=== PATIENT | female | born 1950 | race Caucasian/White ===

== ENCOUNTER 2020-12-06 09:43 | Inpatient (IN) ==
[2020-12-06] MEDS ORDERED: 0.9 % SODIUM CHLORIDE 1,000 ML IV ONE (10:20)
[2020-12-06] MEDS ORDERED: 0.9 % SODIUM CHLORIDE 500 ML IV ONE (10:30)
--- NOTE | 2020-12-06 10:32 | Emergency Department Note ---
Fever HPI General Chief Complaint: Weakness Stated Complaint: positive blood cultures Time Seen by Provider: 12/06/20 10:29 Source: patient, family, RN notes reviewed, old records reviewed and other (Positive blood culture gram-negative bacilli 1 out of 2 sets) Mode of arrival: ambulatory Limitations: no limitations History of Present Illness HPI Narrative: Narrative: A 70-year-old female called back for positive blood cultures. Patient was seen on 7 2 for pneumonia. Had received a dose of Rocephin IV and is on azithromycin p.o. Patient states that she is not improving. She is complaining of fevers and chills and right. She is complaining of shortness of breath. She is complaining of feeling weak and tired and fatigued. She denies any focal weakness. She denies any sore throat she denies any chest pain she denies any abdominal pain she has had nausea but no vomiting. She has had no bright red bl ood per rectum black tarry stools or diarrhea. 1 out of 2 positive blood cultures for gram-negative bacilli. She was hypoxic upon arrival with pulse ox 87% on room air. MD complaint: fever, malaise and weakness Onset (ago): day(s) (5) Context: recent antibiotic use Associated symptoms: Reports chills, rigors, cough, shortness of breath, nausea and confusion; Denies myalgias, headache, rhinorrhea, nasal congestion, sore throat, stiff neck, chest pain, abdominal pain, vomiting, diarrhea, dysuria, rash, night sweats and weight loss Improves with: nothing Worsens with: at night Treatments prior to arrival fever: none Related Data Home Medications Medication Instructions Recorded Confirmed L.acidophilus-Bif. animalis 1 cap PO DAILY 11/26/14 12/06/20 green tea leaf extract 400 mg PO DAILY 11/26/14 12/06/20 lutein 25 mg PO DAILY 11/26/14 12/06/20 omega-3 fatty acids-fish oil 1,000 mg PO DAILY 11/26/14 12/06/20 latanoprost 1 gtt OU HS 06/30/15 12/06/20 omeprazole 20 mg capsule,delayed 20 mg PO QDAY cap 02/22/16 12/06/20 release magnesium 250 tab PO DAILY 06/06/16 12/06/20 cholecalciferol (vitamin D3) 25 1,000 unit PO QDAY 02/27/18 12/06/20 mcg (1,000 unit) capsule B complex-vitamin C-folic acid 400 mcg PO DAILY 01/02/19 12/06/20 coenzyme Q10 100 mg PO DAILY 01/02/19 12/06/20 multivitamin 1 each PO DAILY 01/02/19 12/06/20 melatonin 5 mg capsule 5 mg PO QDAY 10/25/20 12/06/20 zinc acetate 25 mg (zinc) capsule 25 mg PO QDAY 10/25/20 12/06/20 Previous Rx's Medication Instructions Recorded atorvastatin 10 mg tablet 10 mg PO QHS 90 Days #90 tab 11/02/20 albuterol sulfate 2 puff INHALATION Q6H PRN #6.7 g 12/03/20 Allergies Allergy/AdvReac Type Severity Reaction Status Date / Time codeine AdvReac Unknown Itching Verified 12/06/20 09:45 phenobarbital AdvReac Unknown Unknown Verified 12/06/20 09:45 Review of Systems ROS ROS Narrative: Narrative: All systems ED: reviewed and negative except as stated. PFSH Narrative Patient History Narrative: Narrative: Medical/Surgical/Family History All Active Problems (Updated 12/06/20 @ 12:39 by Claus Medina MD) COVID-19 (Acute) Nausea & vomiting (Acute) Pneumonia (Acute) Acute hypokalemia (Acute) Blood bacterial culture positive (Acute) Shoulder pain (Acute) Medicare annual wellness visit, initial (Acute) Multinodular thyroid (Chronic) Puncture wound of left great toe w/o foreign body w/o damage to nail (Acute) Osteopenia (Chronic) History of hysterectomy (Chronic) History of esophagogastroduodenoscopy (EGD) (Chronic) Hyperlipidemia (Chronic) S/P myomectomy (Chronic) History of dental surgery (Chronic) H/O colonoscopy (Chronic) S/P colon resection (Chronic) H/O carpal tunnel repair (Chronic) Hypertension, essential (Chronic) Glaucoma (Chronic) Genital herpes (Chronic) Esophageal reflux (Chronic) Colon polyp (Chronic) Cataracts, bilateral (Chronic) Medical History (Updated 12/06/20 @ 12:39 by Claus Medina MD) Cataracts, bilateral 2014 Colon polyp tubular adenoma, March 2015 Esophageal reflux Genital herpes 1976 Glaucoma 2014 Hyperlipidemia Hypertension, essential Multinodular thyroid Osteopenia Surgical History H/O carpal tunnel repair 1992 H/O colonoscopy [id number], 03/2015 History of dental surgery 2004 Dental implant History of esophagogastroduodenoscopy (EGD) 06/2015 History of hysterectomy History of left salpingo-oophorectomy (08/03/15) right salpingectomy History of vaginal hysterectomy (08/03/15) S/P colon resection 2006 laproscopic S/P myomectomy 1991 Benign fibroid cyst Family History Mother Rheumatoid arthritis Sister Rheumatoid arthritis Grandmother Diabetes mellitus Tuberculosis Father Malignant neoplasm of lung Malignant Neoplasm of Skin Myocardial Infarction Malignant neoplasm of prostate Aunt Myocardial Infarction Brother Myocardial Infarction Social History Smoking Status: Never smoker Alcohol Intake Frequency: holiday/special occasion only Substance Use: does not use Exam Narrative Narrative: Narrative: General Limitations: no limitations General appearance: Present alert and in distress Head Head: Present atraumatic, normocephalic and normal inspection Eye Eye: Present normal appearance, PERRL and EOMI; Absent scleral icterus and conjunctival injection ENT ENT: Present normal oropharynx and mucous membranes dry Neck Neck: Present normal inspection, full ROM and trachea midline; Absent tenderness, lymphadenopathy and thyromegaly Chest Chest: Present normal inspection and symmetric chest wall rise; Absent tenderness Respiratory Respiratory: Present wheezes and decreased breath sounds; Absent respiratory distress, stridor, accessory muscle use and prolonged expiratory phase Cardiovascular Cardiovascular: Present regular rate and normal rhythm; Absent systolic murmur and diastolic murmur Adbominal Abdominal: Present soft; Absent distention, tenderness, guarding, rebound, rigidity, organomegaly and mass Extremities Extremities: Present normal inspection, full ROM and tenderness; Absent normal capillary refill, pedal edema, pretibial edema and calf tenderness Back Back: Present normal inspection and full ROM; Absent tenderness, CVA tenderness (R), CVA tenderness (L) and spinous process tenderness Neurological Neurological: Present alert and oriented X3 Psychiatric Psychiatric: Present normal affect and normal mood Skin Skin: Present warm (WNL) and dry Course Vital Signs Vital signs: Vital Signs Temperature 98.0 F 12/06/20 09:43 Pulse Rate 100 H 12/06/20 09:43 Respiratory Rate 16 12/06/20 09:43 Blood Pressure 122/73 12/06/20 09:43 Pulse Oximetry (%) 90 12/06/20 09:43 Temperature 99.8 F H 12/06/20 10:57 Pulse Rate 96 H 12/06/20 12:30 Respiratory Rate 22 12/06/20 12:30 Blood Pressure 96/83 12/06/20 12:30 Pulse Oximetry (%) 94 12/06/20 12:30 [facility] MDM Narrative Medical decision making narrative: Narrative: Patient with multilobar pneumonia and high cocci treated with p.o. antibiotics and feeling. Positive blood culture showing gram-negative bacillus on 1 out of 2 cultures patient sodium is low at 132 and received IV normal saline patient patient's potassium was low at 2.8 and received IV and p.o. potassium after repeat blood cultures were drawn patient received IV Rocephin and vancomycin, SARS is negative. Discussed patient with Dr. Reno hospitalist service who graciously agreed to admission Differential Diagnosis Differential Diagnosis: Sepsis, Bacteremia, Pneumonia, Medical Records Medical records reviewed: Yes I reviewed the patient's medical records. Lab Data Lab results reviewed: Yes I reviewed the patient's lab results. Result diagrams: 12/06/20 10:15 12/06/20 10:15 Labs: Lab Results 12/06/20 12/06/20 12/06/20 Range/Units 10:15 10:15 10:15 WBC 6.5 (4.5-11.0) K/mcL RBC 4.47 (4.00-5.20) M/mcL Hgb 12.5 (12.0-15.0) g/dL Hct 35.9 L (36.0-48.0) % MCV 80.3 (80.0-100.0) fL MCH 28.0 (26.0-34.0) pg MCHC 34.8 (31.0-36.0) g/dL RDW 13.1 (11.5-14.5) % Plt Count 235 (140-440) K/mcL MPV 9.5 (7.4-10.4) fL Seg Neutrophils % 76 (38-78) % Band Neutrophils % 8 (0-10) % Lymphocytes % 9 L (15-49) % Monocytes % (Manual) 5 (1-12) % Reactive Lymphocytes 2 (0-2) % Platelet Estimate Normal (Normal) RBC Morphology Normal (Normal) VBG Lactic Acid 1.3 (0.5-2.0) mmol/L Sodium 132 L (133-145) mmol/L Potassium 2.8 L* (3.3-5.1) mmol/L Chloride 94 L (96-108) mmol/L Carbon Dioxide 25 (22-30) mmol/L Anion Gap 13.0 (8.0-16.0) BUN 9 (8-23) mg/dL Creatinine 0.4 L (0.6-1.1) mg/dL GFR Calculation 105 Glucose 85 (70-105) mg/dL Calcium 8.3 L (8.6-10.4) mg/dL Total Bilirubin 0.6 (0.1-1.0) mg/dL AST 54 H (<32) U/L ALT 42 H (<40) U/L Alkaline Phosphatase 67 (39-117) U/L Total Protein 6.3 (5.9-8.4) gm/dL Albumin 3.1 L (3.2-5.2) gm/dL Globulin 3.2 (2.2-3.7) gm/dL Albumin/Globulin Ratio 1.0 (1.0-2.3) ED POC Tests ED POC Tests: KIANA - SARS Antigen Negative Radiology Data Radiology results reviewed: Yes I reviewed the patient's radiology results. Radiology results narrative: Bilateral multilobar pneumonia EKG Data EKG #1: EKG attestation: Yes I reviewed and interpreted this EKG. EKG shows normal: sinus rhythm Rate: normal (93) Rhythm: NSR Mclean/QRS: normal Heart block present: None ST segment elevation in: None ST segment depression in: None Q waves: None T wave inversions noted in: None Hyperacute T waves: None QTc: normal QRS morphology: Present normal Interpretation: normal EKG Pulse Oximetry Data Pulse Ox %: 86 Interpretation: 86 is hypoxic on room air. Discharge Plan Patient/Caregiver Discharge Instructions Pt seen by STRIKE OPERATIONS OFFICER/PA only: No Clinical Impression: Pneumonia, Acute hypokalemia, Blood bacterial culture positive Patient Disposition: Xfer As Inpt ([facility]) Follow up with: Carrillo Cameron PA-C [Primary Care Provider] - Prescriptions: No Action atorvastatin 10 mg tablet 10 mg tablet 10 mg PO QHS 90 Days Qty: 90 RF: 1 Fish Oil 1,000 mg PO DAILY RF: 0 Green Tea 400 mg PO DAILY RF: 0 Probiotic 1 cap PO DAILY RF: 0 lutein 25 mg PO DAILY RF: 0 omeprazole 20 mg capsule,delayed release(DR/EC) 20 mg PO QDAY RF: 0 magnesium tablet 250 tab PO DAILY RF: 0 cholecalciferol (vitamin D3) 1,000 unit capsule 1,000 unit PO QDAY RF: 0 Galzin 25 mg (zinc) capsule 25 mg PO QDAY RF: 0 melatonin 5 mg capsule 5 mg PO QDAY RF: 0 latanoprost 1 GTT bottle 1 gtt OU HS RF: 0 multivitamin 1 EACH tablet 1 each PO DAILY RF: 0 coenzyme Q10 100 MG capsule 100 mg PO DAILY RF: 0 B complex-vitamin C-folic acid 400 MCG tablet 400 mcg PO DAILY RF: 0 albuterol sulfate 90 mcg/actuation HFA aerosol inhaler 2 puff inhalation Q6H PRN (Reason: shortness of breath or wheezing) Qty: 6.7 RF: 0
[2020-12-06] MEDS ORDERED: VANCOMYCIN 2,000 MG in 0.9 % SODIUM CHLORIDE 500 ML IV ONE (10:37)
[2020-12-06] MEDS ORDERED: cefTRIAXone 1 GM VIAL IV ONE (10:37)
[2020-12-06] MEDS ORDERED: VANCOMYCIN 1,000 MG in 0.9 % SODIUM CHLORIDE 250 ML IV ONE (11:06)
[2020-12-06 11:53] LABS: Hematocrit 35.9 % (36.0-48.0); Hemoglobin 12.5 g/dL (12.0-15.0); Mean Cell Volume 80.3 fL (80.0-100.0); Mean Corpuscular HGB Conc 34.8 g/dL (31.0-36.0); Mean Platelet Volume 9.5 fL (7.4-10.4); Platelet Count 235 K/mcL (140-440); RBC 4.47 M/mcL (4.00-5.20); Red Cell Distribution Width 13.1 % (11.5-14.5); WBC 6.5 K/mcL (4.5-11.0)
[2020-12-06] MEDS ORDERED: DEXAMETHASONE 10 MG/ML VIAL IV ONE (12:07)
[2020-12-06] MEDS ORDERED: REMDESIVIR 200 MG in 0.9 % SODIUM CHLORIDE 250 ML IV ONE ×2 (12:07→13:45)
--- NOTE | 2020-12-06 12:12 | Internal Med History&Physical ---
HPI History of Present Illness Patient information: Note initiated : 12/06/20 at 12:05 pm Service Date, if different from initiated Date: [] Patient: Khushi Tran a 70 y/o F admitted on for positive blood cultures. Chief Complaint: [] History of present illness: Ms. Tran is a 70 year old F Presents back today who was called back because 1 of 2 blood cultures was positive for gram-negative bacillus. Patient states 25 she came to the ED because she was tired fatigue just was not feeling well and she was diagnosed with Covid. She came back for recheck several days later and was given Zofran for nausea. She then came back 4 days later because she just was not feeling well and had a cough and some shortness of breath. She was diagnosed with pneumonia and then blood culture obtained as well. Is called back today because of the positive cultures. She says she continued to feel ill. She was given antibiotics several days ago and has been taking those. She has a cough productive of white clear sputum. She feels short of breath. Very tired poor appetite. She did not get the COVID-19 vaccine. He does not recall being around anywhere that had Covid virus. In the ED she is hypoxic on room air at 87%. She is felt chills but denies fever. She has nausea. Review of Systems: Pertinent positives as above. Denies headache/fever/vomiting/chest or abdominal pain/diarrhea. Remaining 10 point review of system reviewed negative PFSH PFSH All Active Problems COVID-19 (Acute) Nausea & vomiting (Acute) Pneumonia (Acute) Shoulder pain (Acute) Medicare annual wellness visit, initial (Acute) Multinodular thyroid (Chronic) Puncture wound of left great toe w/o foreign body w/o damage to nail (Acute) Osteopenia (Chronic) History of hysterectomy (Chronic) History of esophagogastroduodenoscopy (EGD) (Chronic) Hyperlipidemia (Chronic) S/P myomectomy (Chronic) History of dental surgery (Chronic) H/O colonoscopy (Chronic) S/P colon resection (Chronic) H/O carpal tunnel repair (Chronic) Hypertension, essential (Chronic) Glaucoma (Chronic) Genital herpes (Chronic) Esophageal reflux (Chronic) Colon polyp (Chronic) Cataracts, bilateral (Chronic) Medical History Cataracts, bilateral 2014 Colon polyp tubular adenoma, March 2015 Esophageal reflux Genital herpes 1976 Glaucoma 2014 Hyperlipidemia Hypertension, essential Multinodular thyroid Osteopenia Surgical History H/O carpal tunnel repair 1992 H/O colonoscopy [id number], 03/2015 History of dental surgery 2005 Dental implant History of esophagogastroduodenoscopy (EGD) 06/2015 History of hysterectomy History of left salpingo-oophorectomy (08/03/15) right salpingectomy History of vaginal hysterectomy (08/03/15) S/P colon resection 2006 laproscopic S/P myomectomy 1991 Benign fibroid cyst Family History Mother Rheumatoid arthritis Sister Rheumatoid arthritis Grandmother Diabetes mellitus Tuberculosis Father Malignant neoplasm of lung Malignant Neoplasm of Skin Myocardial Infarction Malignant neoplasm of prostate Aunt Myocardial Infarction Brother Myocardial Infarction Social History household members: spouse housing: house lives independently: Yes marital status: education level: high school service: No occupational status: retired occupation: Retired in 2011, caregiver, had worked for [employer] x 20 years. eating out: 1-3 times/week physical activity: walking and other details: property maintenance alcohol intake frequency: holiday/special occasion only substance use type: does not use nola/zoroastrianism: Alevism seatbelt use: always MEDS/ALLERGIES Home Medications and Allergies Home Medications Medication Instructions Recorded Confirmed Type L.acidophilus-Bif. animalis 1 cap PO DAILY 11/26/14 12/06/20 History green tea leaf extract 400 mg PO DAILY 11/26/14 12/06/20 History lutein 25 mg PO DAILY 11/26/14 12/06/20 History omega-3 fatty acids-fish oil 1,000 mg PO DAILY 11/26/14 12/06/20 History latanoprost 1 gtt OU HS 06/30/15 12/06/20 History omeprazole 20 mg capsule,delayed 20 mg PO QDAY cap 02/22/16 12/06/20 History release magnesium 250 tab PO DAILY 06/06/16 12/06/20 History cholecalciferol (vitamin D3) 25 1,000 unit PO QDAY 02/27/18 12/06/20 History mcg (1,000 unit) capsule B complex-vitamin C-folic acid 400 mcg PO DAILY 01/02/19 12/06/20 History coenzyme Q10 100 mg PO DAILY 01/02/19 12/06/20 History multivitamin 1 each PO DAILY 01/02/19 12/06/20 History melatonin 5 mg capsule 5 mg PO QDAY 10/25/20 12/06/20 History zinc acetate 25 mg (zinc) capsule 25 mg PO QDAY 10/25/20 12/06/20 History atorvastatin 10 mg tablet 10 mg PO QHS 90 Days #90 tab 11/02/20 12/06/20 Rx albuterol sulfate 2 puff INHALATION Q6H PRN #6.7 g 12/03/20 12/06/20 Rx Allergies Allergy/AdvReac Type Severity Reaction Status Date / Time codeine AdvReac Unknown Itching Verified 12/06/20 09:45 phenobarbital AdvReac Unknown Unknown Verified 12/06/20 09:45 EXAM Constitutional Vitals: Temp Pulse Resp BP Pulse Ox 99.8 F H 90 22 131/76 97 12/06/20 10:57 12/06/20 12:00 12/06/20 12:00 12/06/20 12:00 12/06/20 12:00 Exam: General: Alert, Awake, No acute Distress Eyes/N/T: EOMI, PERRL, MM Head/Neck: neck supple, normocephalic atraumatic CV: RRR, No murmurs, normal s1/s2 Pulm: Mild fine rales b/l, no wheezing Abd: soft, nontender, +BS x4 Ext: no clubbing/cyanosis/edema Neuro: Alert, no focal deficits, moves all extremities, CN 2-12 grossly intact, symmetrical strength b/l upper/lower, sensations intact b/l upper/lower Skin: warm/dry DATA Data Completed and Pending Labs: Labs from last 24 hours 12/06/20 12/06/20 12/06/20 10:15 10:15 10:15 WBC 6.5 RBC 4.47 Hgb 12.5 Hct 35.9 L MCV 80.3 MCH 28.0 MCHC 34.8 RDW 13.1 Plt Count 235 MPV 9.5 Platelet Estimate Pending RBC Morphology Pending VBG Lactic Acid 1.3 Sodium Pending Potassium Pending Chloride Pending Carbon Dioxide Pending Anion Gap Pending BUN Pending Creatinine Pending GFR Calculation Pending Glucose Pending Calcium Pending Total Bilirubin Pending AST Pending ALT Pending Alkaline Phosphatase Pending Total Protein Pending Albumin Pending Globulin Pending Albumin/Globulin Ratio Pending A/P Narrative A/P Narrative: A: *Covid pneumonia: *Acute hypoxic respiratory failure: 2/2 above *Bacteremia (GNB / bottles): *Hyponatremia: * P: -Remdesiver/Dexa -Empric Abx -NS IVF, f/u sodium -wean O2, prn nebs - - -pt/ot -ppx: Lovenox/home ppi full code Time Spent With Patient Time: Total time spent is greater than 50% in coordination of care (as documented) at patient's floor/unit and/or counseling patient:
[2020-12-06 12:27] LABS: Band Neutrophils % 8 % (0-10); Lymphocytes % 9 % (15-49); Monocytes % (Manual) 5 % (1-12); Platelet Estimate NORMAL (Normal); RBC Morphology NORMAL (Normal); Reactive Lymphocytes 2 % (0-2); Segmented Neutrophils % 76 % (38-78)
[2020-12-06 12:30] LABS: ALT/SGPT 42 U/L (<40); AST/SGOT 54 U/L (<32); Albumin 3.1 gm/dL (3.2-5.2); Alkaline Phosphatase 67 U/L (39-117); Bilirubin,Total 0.6 mg/dL (0.1-1.0); Blood Urea Nitrogen 9 mg/dL (8-23); Calcium 8.3 mg/dL (8.6-10.4); Carbon Dioxide 25 mmol/L (22-30); Chloride 94 mmol/L (96-108); Globulin 3.2 gm/dL (2.2-3.7); Glomerular Filtration Rate 105; Glucose 85 mg/dL (70-105)
[2020-12-06] MEDS ORDERED: POTASSIUM CHLORIDE 20 MEQ in DEXTROSE 5% IN WATER 250 ML IV ONE ×2 (12:32→16:00)
[2020-12-06] MEDS ORDERED: POTASSIUM CHLORIDE 20 MEQ TABLET PO ONE ×2 (12:32→13:34)
[2020-12-06] MEDS ORDERED: PROCHLORPERAZINE 10 MG/2 ML VIAL IV PRN (13:31)
[2020-12-06] MEDS ORDERED: 0.9 % SODIUM CHLORIDE 1,000 ML IV SCH (13:31)
[2020-12-06] MEDS ORDERED: POTASSIUM CHLORIDE 40 MEQ in DEXTROSE 5% IN WATER 500 ML IV PRN (13:31)
[2020-12-06] MEDS ORDERED: ACETAMINOPHEN 325 MG TABLET PO PRN (13:31)
[2020-12-06] MEDS ORDERED: POLYETHYLENE GLYCOL 3350 17 GM PACKET PO PRN (13:31)
[2020-12-06] MEDS ORDERED: SENNOSIDES 1 TABLET PO PRN (13:31)
[2020-12-06] MEDS ORDERED: IPRATROPIUM/ALBUTEROL 3 ML AMPUL.NEB NEB PRN (13:31)
[2020-12-06] MEDS ORDERED: MAGNESIUM SULFATE 2 GM/50 ML BAG IV PRN (13:31)
[2020-12-06] MEDS ORDERED: POTASSIUM CHLORIDE 20 MEQ TABLET PO PRN ×2 (13:31)
[2020-12-06] MEDS ORDERED: ONDANSETRON 4 MG/2 ML VIAL IV PRN (13:31)
[2020-12-06] MEDS ORDERED: POTASSIUM CHLORIDE 40 MEQ in DEXTROSE 5% IN WATER 500 ML IV ONE (13:34)
[2020-12-06 13:45] LABS: Creatine Kinase 143 U/L (24-170)
--- NOTE | 2020-12-06 14:24 | XRay Report ---
HISTORY: Fever with shortness of breath, positive blood cultures FINDINGS: There are diffuse hazy alveolar infiltrates throughout both lungs. These have become more since 12/03/20. There is no volume loss or lobar consolidation. No pleural effusion is present. The heart size is normal. There may be mild right hilar adenopathy. IMPRESSION: Worsening bilateral pneumonia Interpreted and Authenticated by: Cornelius Whitehead 12/06/20
[2020-12-06] MEDS: 0.9 % SODIUM CHLORIDE 10 ML SYRINGE IV SCH ×2 (14:30→20:52)
--- NOTE | 2020-12-06 14:43 | EKG ---
[facility] Test Date: 2020-12-06 Pat Name: Khushi Tran Department: ED Room: Gender: Female [employer] P[employer]: tahir : 1950 Requested By: Claus Medina Order Number: [id number] Reading MD: Wiliam Tse M.D. Measurements Intervals [place] Rate: 93 P: 29 RI: 149 QRS: 1 QRSD: 79 T: 14 QT: 364 QTc: 453 Interpretive Statements Sinus rhythm NO PRIOR TRACING FOR COMPARISON NORMAL TRACING Electronically Signed On 12-06-2020 14:43:00 PDT by Wiliam Tse M.D. /store/M0/[id number]
[2020-12-06 15:06] LABS: INR 1.3 (0.9-1.1); Prothrombin Time 16.5 sec (11.9-14.5)
[2020-12-06] MEDS: PIPERACILLIN SODIUM/TAZOBACTAM 3.375 GM in DEXTROSE 5% IN WATER 50 ML IV SCH ×2 (15:38→20:16)
[2020-12-06] MEDS ORDERED: LORazepam 2 MG/ML VIAL IV PRN (19:54)
[2020-12-06] MEDS: ENOXAPARIN 40 MG/0.4 ML SYRINGE SQ SCH (20:48)
[2020-12-06] MEDS: MELATONIN 3 MG TABLET PO SCH (20:48)
[2020-12-06] MEDS ORDERED: LORazepam 2 MG/ML VIAL ONE (20:50)
[2020-12-06] MEDS: ATORVASTATIN 10 MG TABLET PO SCH (20:51)
[2020-12-06] MEDS: LATANOPROST OPHTH DROPS 2.5ML BOTTLE OU SCH (20:52)
[2020-12-06] MEDS: IPRATROPIUM/ALBUTEROL 3 ML AMPUL.NEB NEB SCH (21:30)
[2020-12-07] MEDS: 0.9 % SODIUM CHLORIDE 10 ML SYRINGE IV SCH ×3 (04:04→20:36)
[2020-12-07] MEDS: PIPERACILLIN SODIUM/TAZOBACTAM 3.375 GM in DEXTROSE 5% IN WATER 50 ML IV SCH ×4 (05:28→18:18)
[2020-12-07 06:39] LABS: Hematocrit 32.4 % (36.0-48.0); Hemoglobin 11.3 g/dL (12.0-15.0); Mean Cell Volume 81.6 fL (80.0-100.0); Mean Corpuscular HGB Conc 34.9 g/dL (31.0-36.0); Mean Platelet Volume 9.7 fL (7.4-10.4); Platelet Count 207 K/mcL (140-440); RBC 3.97 M/mcL (4.00-5.20); Red Cell Distribution Width 12.9 % (11.5-14.5)
[2020-12-07 06:48] LABS: ALT/SGPT 40 U/L (<40); AST/SGOT 40 U/L (<32); Albumin 2.6 gm/dL (3.2-5.2); Alkaline Phosphatase 53 U/L (39-117); Bilirubin,Direct < 0.2 mg/dL (0-0.3); Bilirubin,Total 0.3 mg/dL (0.1-1.0); Blood Urea Nitrogen 11 mg/dL (8-23); Calcium 7.8 mg/dL (8.6-10.4); Carbon Dioxide 22 mmol/L (22-30); Chloride 109 mmol/L (96-108); Globulin 2.6 gm/dL (2.2-3.7); Glomerular Filtration Rate 92; Glucose 120 mg/dL (70-105); Lactate Dehydrogenase 378 U/L (135-225); Phosphorous 3.5 mg/dL (2.5-4.5); Triglycerides 74 mg/dL (<150); Uric Acid 1.9 mg/dL (2.5-8.0)
[2020-12-07] MEDS: OMEPRAZOLE 20 MG CAPSULE PO SCH (07:15)
--- NOTE | 2020-12-07 07:31 | Internal Med Progress Note ---
SUBJECTIVE Subjective Patient information: Note initiated : 12/07/20 at 7:29 am Service Date, if different from initiated Date: [] Patient: Khushi Tran 70 y/o F admitted on 12/06/20 for positive blood cultures. Chief Complaint: [] Interval history: History of present illness: Ms. Tran is a 70 year old F Presents back today who was called back because 1 of 2 blood cultures was positive for gram-negative bacillus. Patient states 25 she came to the ED because she was tired fatigue just was not feeling well and she was diagnosed with Covid. She came back for recheck several days later and was given Zofran for nausea. She then came back 4 days later because she just was not feeling well and had a cough and some shortness of breath. She was diagnosed with pneumonia and then blood culture obtained as well. Is called back today because of the positive cultures. She says she continued to feel ill. She was given antibiotics several days ago and has been taking those. She has a cough productive of white clear sputum. She feels short of breath. Very tired poor appetite. She did not get the COVID-19 vaccine. He does not recall being around anywhere that had Covid virus. In the ED she is hypoxic on room air at 87%. She is felt chills but denies fever. She has nausea. 12/07 Patient feels her cough and shortness of breath is little better today. Still very tired. On 3 L nasal cannula. Does have a little pleuritic chest pain but otherwise no new complaints. Review of Systems: denies headache/fever/chills/nausea/vomiting/abdominal pain/diarrhea. Otherwise see above. Constitutional Vitals: Vital Signs Temp Pulse Resp BP Pulse Ox 97.0 F 94 H 24 H 121/87 90 12/07/20 03:03 12/07/20 03:03 12/07/20 03:03 12/07/20 03:03 12/07/20 03:03 Period Temp Pulse Resp BP Sys/Morel Pulse Ox Last 24 Hr 97.0 F-99.8 F 76-101 16-29 96-140/58-95 87-99 Intake and Output 12/06/20 12/07/20 12/07/20 21:59 05:59 13:59 Intake Total 1290 1530 50 Output Total 1400 600 Balance -110 930 50 Weight 65.589 kg Intake & Output: Intake & Output 12/06/20 12/07/20 12/07/20 21:59 05:59 13:59 Intake Total 1290 1530 50 Output Total 1400 600 Balance -110 930 50 Weight 65.589 kg Intake: IV 870 1050 50 Sodium Chloride 0.9% 1,000 ml @ 1000 75 mls/hr IV .[id number] [facility] Rx#: [id number] Zosyn 3.375 gm In Dextrose 5% 100 50 50 in Water 50 ml @ 100 mls/hr IV Q6H [facility] Rx#:[id number] Potassium Chloride 20 Meq In 520 Dextrose 5% in Water 250 ml @ 130 mls/hr IV ONCE ONE Rx#: [id number] Veklury 200 mg In Sodium 250 Chloride 0.9% 250 ml @ 500 mls/ hr IV ONCE ONE Rx#:[id number] Oral 420 480 Output: Void Amount 1400 600 Other: Meal Lunch Percent of Meal Consumed 50% Feeding Ability Independent Urine Appearance Clear Clear Urine Color Pale Bright Yellow Stool Size Small Small Stool Color Brown Brown Stool Consistency Soft Soft Formed Formed # Voids 1 # Bowel Movements 1 1 Exam: General: Alert, Awake, No acute Distress Eyes/N/T: EOMI, Head/Neck: neck supple, CV: RRR, No murmurs, Pulm: Mild fine rales b/l, no wheezing Abd: soft, nontender, +BS x4 Ext: no clubbing/cyanosis/edema Neuro: Alert, no focal deficits, moves all extremities, Skin: warm/dry OBJ DATA Labs CBC & Chem 7: 12/07/20 05:24 12/07/20 05:23 Labs: Abnormal Lab Results 12/07/20 12/07/20 12/07/20 05:24 05:23 05:23 WBC 4.0 L RBC 3.97 L Hgb 11.3 L Hct 32.4 L Lymphocytes % PT INR D-Dimer Sodium Potassium Chloride Creatinine Glucose Uric Acid Calcium Ferritin 1747.0 H AST ALT Lactate Dehydrogenase C-Reactive Protein 9.00 H Total Protein Albumin Procalcitonin 12/07/20 12/07/20 12/06/20 05:23 05:23 13:42 WBC RBC Hgb Hct Lymphocytes % PT 16.5 H INR 1.3 H D-Dimer 1.02 H 1.53 H Sodium Potassium Chloride 109 H Creatinine Glucose 120 H Uric Acid 1.9 L Calcium 7.8 L Ferritin AST 40 H ALT 40 H Lactate Dehydrogenase 378 H C-Reactive Protein Total Protein 5.2 L Albumin 2.6 L Procalcitonin 12/06/20 12/06/20 12/06/20 10:15 10:15 10:15 WBC RBC Hgb Hct Lymphocytes % PT INR D-Dimer Sodium 132 L Potassium 2.8 L* Chloride 94 L Creatinine 0.4 L Glucose Uric Acid Calcium 8.3 L Ferritin 1998.0 H AST 54 H ALT 42 H Lactate Dehydrogenase C-Reactive Protein 13.30 H Total Protein Albumin 3.1 L Procalcitonin 0.19 H 12/06/20 10:15 WBC RBC Hgb Hct 35.9 L Lymphocytes % 9 L PT INR D-Dimer Sodium Potassium Chloride Creatinine Glucose Uric Acid Calcium Ferritin AST ALT Lactate Dehydrogenase C-Reactive Protein Total Protein Albumin Procalcitonin Meds: Medications Acetaminophen (Acetaminophen 325 Mg Tablet) 650 mg PO Q6HP PRN PRN Reason: PAIN/FEVER > 101 Albuterol/Ipratropium (Ipratropium/Albuterol 3 Ml Ampul.Neb) 3 ml NEB Q4HP PRN PRN Reason: Shortness Of Breath Albuterol/Ipratropium (Ipratropium/Albuterol 3 Ml Ampul.Neb) 3 ml NEB BID [facility] Last Admin: 12/06/20 21:30 Dose: 3 ml Documented by: Atorvastatin Calcium (Atorvastatin 10 Mg Tablet) 10 mg PO [facility] Last Admin: 12/06/20 20:51 Dose: 10 mg Documented by: Dexamethasone (Dexamethasone 4 Mg Tablet) 6 mg PO DAILY [facility] Enoxaparin Sodium (Enoxaparin 40 Mg/0.4 Ml Syringe) 40 mg SQ BID [facility] Last Admin: 12/06/20 20:48 Dose: 40 mg Documented by: REMDESIVIR 100 mg/ Sodium (Chloride) 250 mls @ 500 mls/hr IV DAILY@1100 [facility] Stop: 12/10/20 11:29 Potassium Chloride 40 meq/ (Dextrose) 520 mls @ 130 mls/hr IV UD PRN PRN Reason: Potassium < 3 Magnesium Sulfate (Magnesium Sulfate) 2 gm in 50 mls @ 50 mls/hr IV UD PRN PRN Reason: Magnesium </= 1.6 Piperacillin Sod/Tazobactam (Sod 3.375 gm/ Dextrose) 50 mls @ 100 mls/hr IV Q6H [facility]; Protocol Last Infusion: 12/07/20 06:42 Dose: Infused Documented by: Latanoprost (Latanoprost Ophth Drops 2.5ml Bottle) 1 gtt OU HS [facility] Last Admin: 12/06/20 20:52 Dose: Not Given Documented by: Lorazepam (Lorazepam 2 Mg/Ml Vial) 0.5 mg IV Q8HP PRN PRN Reason: ANXIETY/SEDATION Last Admin: 12/06/20 20:50 Dose: 0.5 mg Documented by: Melatonin (Melatonin 3 Mg Tablet) 6 mg PO HS [facility] Last Admin: 12/06/20 20:48 Dose: 6 mg Documented by: Omeprazole (Omeprazole 20 Mg Capsule) 20 mg PO ACB [facility] Last Admin: 12/07/20 07:15 Dose: 20 mg Documented by: Ondansetron HCl (Ondansetron 4 Mg/2 Ml Vial) 4 mg IV Q4HP PRN PRN Reason: Nausea And Vomiting Polyethylene Glycol (Polyethylene Glycol 3350 17 Gm Packet) 17 gm PO DAILYP PRN PRN Reason: Constipation Potassium Chloride (Potassium Chloride 20 Meq Tablet) 40 meq PO UD PRN PRN Reason: Potssium is 3-3.5 Potassium Chloride (Potassium Chloride 20 Meq Tablet) 40 meq PO UD PRN PRN Reason: Potassium < 3 Prochlorperazine (Prochlorperazine 10 Mg/2 Ml Vial) 10 mg IV Q6HP PRN PRN Reason: Nausea And Vomiting Senna (Sennosides 1 Tablet) 2 tab PO DAILYP PRN PRN Reason: Constipation Sodium Chloride (0.9 % Sodium Chloride 10 Ml Syringe) 10 ml IV Q8 [facility] Last Admin: 12/07/20 04:04 Dose: Not Given Documented by: Vitamin B Complex (Vitamin B Complex 1 Capsule) 1 cap PO DAILY [facility] Zinc Sulfate (Zinc Sulfate 50 Mg Capsule) 50 mg PO DAILY [facility] A/P Narrative A/P Narrative: A: *Covid pneumonia: -inflammatory markers improving *Acute hypoxic respiratory failure: 2/2 above -2-3L NC *Bacteremia (GNB 1/4 bottles): *Hyponatremia/hypokalemia: improved *Generalized weakness/malaise: 2/2 above P: -Remdesiver/Dexa -Empric Abx, mrsa screen neg -pending BC -wean O2, prn nebs -pt/ot -ppx: Lovenox/home ppi full code Time Spent With Patient Time: Total time spent is greater than 50% in coordination of care (as documented) at patient's floor/unit and/or counseling patient: QUALITY VTE Deep Vein Thrombosis/Pulmonary Embolism Present on Admission: No
[2020-12-07 07:50] LABS: Band Neutrophils % 6 % (0-10); Lymphocytes % 10 % (15-49); Monocytes % (Manual) 5 % (1-12); Platelet Estimate NORMAL (Normal); RBC Morphology NORMAL (Normal); Reactive Lymphocytes 1 % (0-2); Segmented Neutrophils % 78 % (38-78)
[2020-12-07] MEDS: IPRATROPIUM/ALBUTEROL 3 ML AMPUL.NEB NEB SCH (08:25)
[2020-12-07] MEDS: DEXAMETHASONE 4 MG TABLET PO SCH (09:00)
[2020-12-07] MEDS: VITAMIN B COMPLEX 1 CAPSULE PO SCH (09:02)
[2020-12-07] MEDS: ZINC SULFATE 50 MG CAPSULE PO SCH (09:02)
[2020-12-07] MEDS: ENOXAPARIN 40 MG/0.4 ML SYRINGE SQ SCH ×2 (09:02→20:26)
[2020-12-07] MEDS: REMDESIVIR 100 MG in 0.9 % SODIUM CHLORIDE 250 ML IV SCH (12:55)
[2020-12-07] MEDS: MELATONIN 3 MG TABLET PO SCH (20:25)
[2020-12-07] MEDS: LATANOPROST OPHTH DROPS 2.5ML BOTTLE OU SCH (20:30)
[2020-12-07] MEDS: ATORVASTATIN 10 MG TABLET PO SCH (20:36)
[2020-12-08] MEDS: PIPERACILLIN SODIUM/TAZOBACTAM 3.375 GM in DEXTROSE 5% IN WATER 50 ML IV SCH ×2 (05:48)
[2020-12-08] MEDS: 0.9 % SODIUM CHLORIDE 10 ML SYRINGE IV SCH ×3 (05:48→20:12)
[2020-12-08 06:35] LABS: Basophils # (Auto) 0.01 K/mcL (0.00-0.20); Basophils % (Auto) 0.1 % (0.0-2.0); Eosinophils # (Auto) 0 K/mcL (0.00-0.70); Eosinophils % (Auto) 0 % (0.0-7.0); Hematocrit 33.4 % (36.0-48.0); Hemoglobin 11.6 g/dL (12.0-15.0); Lymphocytes # (Auto) 0.83 K/mcL (1.50-4.80); Lymphocytes % (Auto) 9.4 % (15.0-49.0); Mean Cell Volume 80.9 fL (80.0-100.0); Mean Corpuscular HGB Conc 34.7 g/dL (31.0-36.0); Mean Platelet Volume 9.5 fL (7.4-10.4); Monocytes # (Auto) 0.64 K/mcL (0.10-0.90); Monocytes % (Auto) 7.3 % (1.0-12.0); Neutrophils % (Auto) 83.2 % (38.0-78.0); Platelet Count 270 K/mcL (140-440); RBC 4.13 M/mcL (4.00-5.20); WBC 8.8 K/mcL (4.5-11.0)
[2020-12-08 06:49] LABS: ALT/SGPT 41 U/L (<40); AST/SGOT 34 U/L (<32); Albumin 2.5 gm/dL (3.2-5.2); Albumin/Globulin Ratio 0.9 (1.0-2.3); Alkaline Phosphatase 55 U/L (39-117); Bilirubin,Direct < 0.2 mg/dL (0-0.3); Bilirubin,Total 0.4 mg/dL (0.1-1.0); Blood Urea Nitrogen 11 mg/dL (8-23); Calcium 8.3 mg/dL (8.6-10.4); Carbon Dioxide 25 mmol/L (22-30); Chloride 105 mmol/L (96-108); Globulin 2.8 gm/dL (2.2-3.7); Glomerular Filtration Rate 97; Glucose 103 mg/dL (70-105); Lactate Dehydrogenase 394 U/L (135-225); Phosphorous 4.1 mg/dL (2.5-4.5); Triglycerides 45 mg/dL (<150); Uric Acid 1.6 mg/dL (2.5-8.0)
--- NOTE | 2020-12-08 07:26 | Internal Med Progress Note ---
SUBJECTIVE Subjective Patient information: Note initiated : 12/08/20 at 7:23 am Service Date, if different from initiated Date: [] Patient: Khushi Tran 70 y/o F admitted on 12/06/20 for positive blood cultures. Chief Complaint: [] Interval history: History of present illness: Ms. Tran is a 70 year old F Presents back today who was called back because 1 of 2 blood cultures was positive for gram-negative bacillus. Patient states 25 she came to the ED because she was tired fatigue just was not feeling well and she was diagnosed with Covid. She came back for recheck several days later and was given Zofran for nausea. She then came back 4 days later because she just was not feeling well and had a cough and some shortness of breath. She was diagnosed with pneumonia and then blood culture obtained as well. Is called back today because of the positive cultures. She says she continued to feel ill. She was given antibiotics several days ago and has been taking those. She has a cough productive of white clear sputum. She feels short of breath. Very tired poor appetite. She did not get the COVID-19 vaccine. He does not recall being around anywhere that had Covid virus. In the ED she is hypoxic on room air at 87%. She is felt chills but denies fever. She has nausea. 7/6 Patient feels her cough and shortness of breath is little better today. Still very tired. On 3 L nasal cannula. Does have a little pleuritic chest pain but otherwise no new complaints. 7/7 Feeling little better. Has cough and shortness of breath both slowly improving. Headache. But no fever chills. Review of Systems: denies headache/fever/chills/nausea/vomiting/abdominal pain/diarrhea. Otherwise see above. Constitutional Vitals: Vital Signs Temp Pulse Resp BP Pulse Ox 96.5 F L 85 20 126/66 93 12/08/20 04:00 12/07/20 18:44 12/08/20 04:00 12/08/20 04:00 12/08/20 04:00 Period Temp Pulse Resp BP Sys/Morel Pulse Ox Last 24 Hr 96.5 F-98.0 F 73-94 16-22 114-138/64-79 90-98 Intake and Output 12/07/20 12/08/2012/08/21 21:59 05:59 13:59 Intake Total 300 1250 Output Total 400 900 Balance -100 350 Weight 64.07 kg Intake & Output: Intake & Output 12/07/20 12/08/20 12/08/20 21:59 05:59 13:59 Intake Total 300 1250 Output Total 400 900 Balance -100 350 Weight 64.07 kg Intake: IV 300 50 Zosyn 3.375 gm In Dextrose 5% 50 50 in Water 50 ml @ 100 mls/hr IV Q6H [facility] Rx#:[id number] Veklury 100 mg In Sodium 250 Chloride 0.9% 250 ml @ 500 mls/ hr IV DAILY@1100 [facility] Rx#: [id number] Oral 1200 Output: Void Amount 400 900 Other: Meal Dinner Percent of Meal Consumed 75% Urine Appearance Clear Clear Urine Color Bright Yellow Pale Urine Odor Normal Normal Stool Size Small Small Stool Color Brown Brown Brown Yellow Stool Consistency Watery Soft Watery # Voids 1 1 # Bowel Movements 1 1 1 Exam: General: Alert, Awake, No acute Distress Eyes/N/T: EOMI, Head/Neck: neck supple, CV: RRR, No murmurs, Pulm: Mild fine rales b/l improving, no wheezing Abd: soft, nontender, +BS x4 Ext: no clubbing/cyanosis/edema Neuro: Alert, no focal deficits, moves all extremities, Skin: warm/dry OBJ DATA Labs CBC & Chem 7: 12/08/20 05:13 12/08/20 05:13 Labs: Abnormal Lab Results 12/08/20 12/08/20 12/08/20 05:13 05:13 05:13 WBC RBC Hgb 11.6 L Hct 33.4 L Neut % (Auto) 83.2 H Lymph % (Auto) 9.4 L Lymph # (Auto) 0.83 L Lymphocytes % PT INR D-Dimer Sodium Potassium Chloride Creatinine 0.5 L Glucose Uric Acid 1.6 L Calcium 8.3 L Ferritin 1582.0 H AST 34 H ALT 41 H Lactate Dehydrogenase 394 H C-Reactive Protein 4.10 H Total Protein 5.3 L Albumin 2.5 L Albumin/Globulin Ratio 0.9 L Procalcitonin 12/07/20 12/07/20 12/07/20 05:24 05:23 05:23 WBC 4.0 L RBC 3.97 L Hgb 11.3 L Hct 32.4 L Neut % (Auto) Lymph % (Auto) Lymph # (Auto) Lymphocytes % 10 L PT INR D-Dimer Sodium Potassium Chloride Creatinine Glucose Uric Acid Calcium Ferritin 1747.0 H AST ALT Lactate Dehydrogenase C-Reactive Protein 9.00 H Total Protein Albumin Albumin/Globulin Ratio Procalcitonin 12/07/20 12/07/20 12/06/20 05:23 05:23 13:42 WBC RBC Hgb Hct Neut % (Auto) Lymph % (Auto) Lymph # (Auto) Lymphocytes % PT 16.5 H INR 1.3 H D-Dimer 1.02 H 1.53 H Sodium Potassium Chloride 109 H Creatinine Glucose 120 H Uric Acid 1.9 L Calcium 7.8 L Ferritin AST 40 H ALT 40 H Lactate Dehydrogenase 378 H C-Reactive Protein Total Protein 5.2 L Albumin 2.6 L Albumin/Globulin Ratio Procalcitonin 12/06/20 12/06/20 12/06/20 10:15 10:15 10:15 WBC RBC Hgb Hct Neut % (Auto) Lymph % (Auto) Lymph # (Auto) Lymphocytes % PT INR D-Dimer Sodium 132 L Potassium 2.8 L* Chloride 94 L Creatinine 0.4 L Glucose Uric Acid Calcium 8.3 L Ferritin 1998.0 H AST 54 H ALT 42 H Lactate Dehydrogenase C-Reactive Protein 13.30 H Total Protein Albumin 3.1 L Albumin/Globulin Ratio Procalcitonin 0.19 H 12/06/20 10:15 WBC RBC Hgb Hct 35.9 L Neut % (Auto) Lymph % (Auto) Lymph # (Auto) Lymphocytes % 9 L PT INR D-Dimer Sodium Potassium Chloride Creatinine Glucose Uric Acid Calcium Ferritin AST ALT Lactate Dehydrogenase C-Reactive Protein Total Protein Albumin Albumin/Globulin Ratio Procalcitonin Meds: Medications Acetaminophen (Acetaminophen 325 Mg Tablet) 650 mg PO Q6HP PRN PRN Reason: PAIN/FEVER > 101 Albuterol/Ipratropium (Ipratropium/Albuterol 3 Ml Ampul.Neb) 3 ml NEB Q4HP PRN PRN Reason: Shortness Of Breath Atorvastatin Calcium (Atorvastatin 10 Mg Tablet) 10 mg PO [facility] Last Admin: 12/07/20 20:36 Dose: 10 mg Documented by: Dexamethasone (Dexamethasone 4 Mg Tablet) 6 mg PO DAILY [facility] Last Admin: 12/07/20 09:00 Dose: 6 mg Documented by: Enoxaparin Sodium (Enoxaparin 40 Mg/0.4 Ml Syringe) 40 mg SQ BID [facility] Last Admin: 12/07/20 20:26 Dose: 40 mg Documented by: REMDESIVIR 100 mg/ Sodium (Chloride) 250 mls @ 500 mls/hr IV DAILY@1100 [facility] Stop: 12/10/20 11:29 Last Infusion: 12/07/20 15:10 Dose: Infused Documented by: Potassium Chloride 40 meq/ (Dextrose) 520 mls @ 130 mls/hr IV UD PRN PRN Reason: Potassium < 3 Magnesium Sulfate (Magnesium Sulfate) 2 gm in 50 mls @ 50 mls/hr IV UD PRN PRN Reason: Magnesium </= 1.6 Piperacillin Sod/Tazobactam (Sod 3.375 gm/ Dextrose) 50 mls @ 100 mls/hr IV Q6H [facility]; Protocol Last Admin: 12/08/20 05:48 Dose: 100 mls/hr Documented by: Latanoprost (Latanoprost Ophth Drops 2.5ml Bottle) 1 gtt OU [facility] Last Admin: 12/07/20 20:30 Dose: 1 gtt Documented by: Lorazepam (Lorazepam 2 Mg/Ml Vial) 0.5 mg IV Q8HP PRN PRN Reason: ANXIETY/SEDATION Last Admin: 12/06/20 20:50 Dose: 0.5 mg Documented by: Melatonin (Melatonin 3 Mg Tablet) 6 mg PO [facility] Last Admin: 12/07/20 20:25 Dose: 6 mg Documented by: Omeprazole (Omeprazole 20 Mg Capsule) 20 mg PO ACB [facility] Last Admin: 12/07/20 07:15 Dose: 20 mg Documented by: Ondansetron HCl (Ondansetron 4 Mg/2 Ml Vial) 4 mg IV Q4HP PRN PRN Reason: Nausea And Vomiting Polyethylene Glycol (Polyethylene Glycol 3350 17 Gm Packet) 17 gm PO DAILYP PRN PRN Reason: Constipation Potassium Chloride (Potassium Chloride 20 Meq Tablet) 40 meq PO UD PRN PRN Reason: Potssium is 3-3.5 Potassium Chloride (Potassium Chloride 20 Meq Tablet) 40 meq PO UD PRN PRN Reason: Potassium < 3 Prochlorperazine (Prochlorperazine 10 Mg/2 Ml Vial) 10 mg IV Q6HP PRN PRN Reason: Nausea And Vomiting Senna (Sennosides 1 Tablet) 2 tab PO DAILYP PRN PRN Reason: Constipation Sodium Chloride (0.9 % Sodium Chloride 10 Ml Syringe) 10 ml IV Q8 [facility] Last Admin: 12/08/20 05:48 Dose: 10 ml Documented by: Vitamin B Complex (Vitamin B Complex 1 Capsule) 1 cap PO DAILY [facility] Last Admin: 12/07/20 09:02 Dose: 1 cap Documented by: Zinc Sulfate (Zinc Sulfate 50 Mg Capsule) 50 mg PO DAILY [facility] Last Admin: 12/07/20 09:02 Dose: 50 mg Documented by: A/P Narrative A/P Narrative: A: *Covid pneumonia: -inflammatory markers improving *Acute hypoxic respiratory failure: 2/2 above -2-4L NC *Bacteremia (Moraxella 1/4 bottles): repeat BC neg *Hyponatremia/hypokalemia: improved *Generalized weakness/malaise: 2/2 above P: -Remdesiver/Dexa -prone positioning -Empric Abx, mrsa screen neg -pending BC -wean O2, prn nebs -pt/ot -ppx: Lovenox/home ppi full code Time Spent With Patient Time: Total time spent is greater than 50% in coordination of care (as doc umented) at patient's floor/unit and/or counseling patient: QUALITY VTE Deep Vein Thrombosis/Pulmonary Embolism Present on Admission: No
[2020-12-08] MEDS: OMEPRAZOLE 20 MG CAPSULE PO SCH (07:28)
[2020-12-08] MEDS: DEXAMETHASONE 4 MG TABLET PO SCH (09:55)
[2020-12-08] MEDS: cefTRIAXone 2 GM in DEXTROSE 5% IN WATER 50 ML IV SCH (09:56)
[2020-12-08] MEDS: VITAMIN B COMPLEX 1 CAPSULE PO SCH (09:56)
[2020-12-08] MEDS: ZINC SULFATE 50 MG CAPSULE PO SCH (09:56)
[2020-12-08] MEDS: ENOXAPARIN 40 MG/0.4 ML SYRINGE SQ SCH ×2 (09:56→20:11)
[2020-12-08] MEDS: REMDESIVIR 100 MG in 0.9 % SODIUM CHLORIDE 250 ML IV SCH (10:53)
--- NOTE | 2020-12-08 11:45 | Discharge Summary ---
Discharge Provider Provider Patient information: Note initiated : 12/08/20 at 11:43 am Service Date, if different from initiated Date: [] Patient: Khushi Tran 70 y/o F admitted on 12/06/20 for positive blood cultures. Chief Complaint: [] Date of admission: 12/06/20 13:18 Discharge date: 12/10/20 Primary care physician: Carrillo Cameron PA-C Consults: 12/07/20 07:09 Consult to Physician [CONS] Routine Comment: Consulting Provider: Lizandro Reno Reason For Exam: Physician to Consult Discharge Meds Discharge Medications Home Medications L.acidophilus-Bif. animalis 1 cap PO DAILY 11/26/14 [History Confirmed 12/06/20 Last Taken 06/29/15] green tea leaf extract 400 mg PO DAILY 11/26/14 [History Confirmed 12/06/20 Last Taken 06/29/15] lutein 25 mg PO DAILY 11/26/14 [History Confirmed 12/06/20 Last Taken 06/29/15] omega-3 fatty acids-fish oil 1,000 mg PO DAILY 11/26/14 [History Confirmed 12/06/20 Last Taken 06/29/15] latanoprost 1 gtt OU HS 06/30/15 [History Confirmed 12/06/20 Last Taken 6] omeprazole 20 mg capsule,delayed release 20 mg PO QDAY cap 02/22/16 [History Confirmed 12/06/20 Last Taken Unknown] magnesium 250 tab PO DAILY 06/06/16 [History Confirmed 12/06/20 Last Taken Unkno wn] cholecalciferol (vitamin D3) 25 mcg (1,000 unit) capsule 1,000 unit PO QDAY 02/27/18 [History Confirmed 12/06/20 Last Taken Unknown] B complex-vitamin C-folic acid 400 mcg PO DAILY 01/02/19 [History Confirmed 12/06/20 Last Taken Unknown] coenzyme Q10 100 mg PO DAILY 01/02/19 [History Confirmed 12/06/20 Last Taken Unknown] multivitamin 1 each PO DAILY 01/02/19 [History Confirmed 12/06/20 Last Taken Unknown] melatonin 5 mg capsule 5 mg PO QHS 10/25/20 [History Confirmed 12/06/20 Last Taken Unknown] zinc acetate 25 mg (zinc) capsule 25 mg PO QDAY 10/25/20 [History Confirmed 12/06/20 Last Taken Unknown] atorvastatin 10 mg tablet 10 mg PO QHS 90 Days #90 tab 11/02/20 [Rx Confirmed 12/06/20 Last Taken Unknown] albuterol sulfate 2 puff INHALATION Q6H PRN #6.7 g 12/03/20 [Rx Confirmed 12/06/20 Last Taken Unknown] cefdinir 300 mg PO BID #12 cap 12/08/20 [Rx Last Taken Unknown] COURSE Hospital Course Hospital course: Interval history: History of present illness: Ms. Tran is a 70 year old F Presents back today who was called back because 1 of 2 blood cultures was positive for gram-negative bacillus. Patient states 25 she came to the ED because she was tired fatigue just was not feeling well and she was diagnosed with Covid. She came back for recheck several days later and was given Zofran for nausea. She then came back 4 days later because she just was not feeling well and had a cough and some shortness of breath. She was diagnosed with pneumonia and then blood culture obtained as well. Is called back today because of the positive cultures. She says she continued to feel ill. She was given antibiotics several days ago and has been taking those. She has a cough productive of white clear sputum. She feels short of breath. Very tired poor appetite. She did not get the COVID-19 vaccine. He does not recall being around anywhere that had Covid virus. In the ED she is hypoxic on room air at 87%. She is felt chills but denies fever. She has nausea. 7 Patient feels her cough and shortness of breath is little better today. Still very tired. On 3 L nasal cannula. Does have a little pleuritic chest pain but otherwise no new complaints. 7/ Feeling little better. Has cough and shortness of breath both slowly improving. Headache. But no fever chills. 12/09 Feeling better again. Occasional cough. Denies shortness of breath. Was on 1 L when I walked in with good sats and put on room air, will monitor. Patient wanted to go home. 12/10 Feeling good. On room air. Ready to go home. A/P Narrative: *Covid pneumonia: *Acute hypoxic respiratory failure: 2/2 above *Bacteremia (Moraxella 1/4 bottles): repeat BC neg *Hyponatremia/hypokalemia: improved *Generalized weakness/malaise: 2/2 above Discharge diagnosis: Covid pneumonia Moraxella bacteremia hypoxic respiratory failure Secondary discharge diagnosis: Hyponatremia hypokalemia generalized weakness malaise Time Spent with Patient Time attestation: Total time spent providing and/or coordinating discharge services: Time spent: Greater than 30 minutes EXAM Constitutional Vitals: Temp Pulse Resp BP Pulse Ox 97.8 F 80 18 125/75 97 12/08/20 08:00 12/08/20 08:00 12/08/20 08:00 12/08/20 08:00 12/08/20 08:00 Discharge Data Data Completed and Pending Labs on day of discharge: Labs from last 24 hours 12/08/20 12/08/20 12/08/20 05:13 05:13 05:13 WBC 8.8 RBC 4.13 Hgb 11.6 L Hct 33.4 L MCV 80.9 MCH 28.1 MCHC 34.7 RDW 13.0 Plt Count 270 MPV 9.5 Neut % (Auto) 83.2 H Lymph % (Auto) 9.4 L Ray % (Auto) 7.3 Eos % (Auto) 0 Baso % (Auto) 0.1 Lymph # (Auto) 0.83 L Ray # (Auto) 0.64 Eos # (Auto) 0 Baso # (Auto) 0.01 Absolute Neutrophils 7.33 Sodium 139 Potassium 3.3 Chloride 105 Carbon Dioxide 25 Anion Gap 9.0 BUN 11 Creatinine 0.5 L GFR Calculation 97 Glucose 103 Uric Acid 1.6 L Calcium 8.3 L Phosphorus 4.1 Magnesium 2.1 Ferritin 1582.0 H Total Bilirubin 0.4 Direct Bilirubin < 0.2 GGT 22 AST 34 H ALT 41 H Alkaline Phosphatase 55 Lactate Dehydrogenase 394 H C-Reactive Protein 4.10 H Total Protein 5.3 L Albumin 2.5 L Globulin 2.8 Albumin/Globulin Ratio 0.9 L Triglycerides 45 Preliminary micro results at discharge 12/06/20 11:00 Blood Culture - Preliminary Blood 12/06/20 10:15 Blood Culture - Preliminary Blood 12/06/20 13:52 Gram Stain - Preliminary Sputum source - Induced Sputum Culture - Preliminary Discharge Plan Patient/Caregiver Discharge Instructions Activity: increase activity as tolerated Diet: Regular Diet Instructions: Dexamethasone (By mouth), Cefdinir (By mouth), Hypoxia (GEN), Pneumonia (GEN), Bacteremia (GEN), COVID-19 (Coronavirus Disease 2019)(GEN) Activity Restrictions/Additional Instructions: Increase activity as tolerated, continue a regular diet Follow up with your Primary Care Physician as scheduled This discharge packet is provided to you to help keep you informed about your care. We want to ensure you get everything you need when you go home. You will also be receiving a call from us in a few days to follow up with you and see how you are doing since your discharge. This gives us a chance to listen to any concerns you maybe experiencing since you were discharged or any additional needs you may have, as well as providing us feedback on your care experience. We strive to always provide excellent care and thank you for your feedback and for choosing [facility]. Prescriptions: New cefdinir 300 mg capsule 300 mg PO BID Qty: 12 RF: 0 Continued atorvastatin 10 mg tablet 10 mg tablet 10 mg PO QHS 90 Days Qty: 90 RF: 1 Fish Oil 1,000 mg PO DAILY RF: 0 Green Tea 400 mg PO DAILY RF: 0 Probiotic 1 cap PO DAILY RF: 0 lutein 25 mg PO DAILY RF: 0 omeprazole 20 mg capsule,delayed release(DR/EC) 20 mg PO QDAY RF: 0 magnesium tablet 250 tab PO DAILY RF: 0 cholecalciferol (vitamin D3) 1,000 unit capsule 1,000 unit PO QDAY RF: 0 Galzin 25 mg (zinc) capsule 25 mg PO QDAY RF: 0 melatonin 5 mg capsule 5 mg PO QHS RF: 0 latanoprost 1 GTT bottle 1 gtt OU HS RF: 0 multivitamin 1 EACH tablet 1 each PO DAILY RF: 0 coenzyme Q10 100 MG capsule 100 mg PO DAILY RF: 0 B complex-vitamin C-folic acid 400 MCG tablet 400 mcg PO DAILY RF: 0 albuterol sulfate 90 mcg/actuation HFA aerosol inhaler 2 puff inhalation Q6H PRN (Reason: shortness of breath or wheezing) Qty: 6.7 RF: 0 Follow Up Plan Follow up with: Carrillo Cameron PA-C [Primary Care Provider] - 12/16/20 9:30 am (Please check in @ 9:15 am) Patient Disposition: Home, Self-Care Prognosis: Fair Overall status at discharge: patient is progressing back to baseline Discharge Orders: Discharge Order (Routine); Ordered 12/10/20 Ordered By: Lizandro Reno [facility] VTE Deep Vein Thrombosis/Pulmonary Embolism Present on Admission: No
[2020-12-08] MEDS: MELATONIN 3 MG TABLET PO SCH (20:10)
[2020-12-08] MEDS: ATORVASTATIN 10 MG TABLET PO SCH (20:10)
[2020-12-08] MEDS: LATANOPROST OPHTH DROPS 2.5ML BOTTLE OU SCH (20:11)
[2020-12-09] MEDS: 0.9 % SODIUM CHLORIDE 10 ML SYRINGE IV SCH ×3 (05:22→20:58)
--- NOTE | 2020-12-09 07:18 | Internal Med Progress Note ---
SUBJECTIVE Subjective Patient information: Note initiated : 12/09/20 at 7:17 am Service Date, if different from initiated Date: [] Patient: Khushi Tran a 70 y/o F admitted on 12/06/20 for positive blood cultures. Chief Complaint: [] Interval history: History of present illness: Ms. Tran is a 70 year old F Presents back today who was called back because 1 of 2 blood cultures was positive for gram-negative bacillus. Patient states 25 she came to the ED because she was tired fatigue just was not feeling well and she was diagnosed with Covid. She came back for recheck several days later and was given Zofran for nausea. She then came back 4 days later because she just was not feeling well and had a cough and some shortness of breath. She was diagnosed with pneumonia and then blood culture obtained as well. Is called back today because of the positive cultures. She says she continued to feel ill. She was given antibiotics several days ago and has been taking those. She has a cough productive of white clear sputum. She feels short of breath. Very tired poor appetite. She did not get the COVID-19 vaccine. He does not recall being around anywhere that had Covid virus. In the ED she is hypoxic on room air at 87%. She is felt chills but denies fever. She has nausea. 7/6 Patient feels her cough and shortness of breath is little better today. Still very tired. On 3 L nasal cannula. Does have a little pleuritic chest pain but otherwise no new complaints. 7/7 Feeling little better. Has cough and shortness of breath both slowly improving. Headache. But no fever chills. 7/8 Feeling better again. Occasional cough. Denies shortness of breath. Was on 1 L when I walked in with good sats and put on room air, will monitor. Patient wanted to go home. Review of Systems: denies headache/fever/chills/nausea/vomiting/abdominal pain/diarrhea. Otherwise see above. Constitutional Vitals: Vital Signs Temp Pulse Resp BP Pulse Ox 96.2 F L 82 20 142/79 95 12/09/20 04:00 12/08/20 15:38 12/09/20 04:00 12/09/20 04:00 12/09/20 04:00 Period Temp Pulse Resp BP Sys/Morel Pulse Ox Last 24 Hr 95.6 F-97.8 F 80-82 18-20 125-148/72-79 95-98 Intake and Output 12/08/20 12/09/20 12/09/20 21:59 05:59 13:59 Intake Total 200 1200 Output Total 1525 1400 Balance -1325 -200 Weight 64.013 kg Intake & Output: Intake & Output 12/08/20 12/09/20 12/09/20 21:59 05:59 13:59 Intake Total 200 1200 Output Total 1525 1400 Balance -1325 -200 Weight 64.013 kg Intake: Oral 200 1200 Output: Void Amount 1525 1400 Other: Meal Dinner Percent of Meal Consumed 100% Urine Appearance Clear Clear Urine Color Pale Pale Urine Odor Normal Normal Stool Size Small Stool Color Brown Stool Consistency Soft # Bowel Movements 1 1 Exam: General: Alert, Awake, No acute Distress Eyes/N/T: EOMI, Head/Neck: neck supple, CV: RRR, No murmurs, Pulm: Minimal fine rales b/l improved, no wheezing Abd: soft, nontender, +BS x4 Ext: no clubbing/cyanosis/edema Neuro: Alert, no focal deficits, moves all extremities, Skin: warm/dry OBJ DATA Labs CBC & Chem 7: 12/08/20 05:13 12/08/20 05:13 Labs: Abnormal Lab Results 12/08/20 12/08/20 12/08/20 05:13 05:13 05:13 WBC RBC Hgb 11.6 L Hct 33.4 L Neut % (Auto) 83.2 H Lymph % (Auto) 9.4 L Lymph # (Auto) 0.83 L Lymphocytes % PT INR D-Dimer Sodium Potassium Chloride Creatinine 0.5 L Glucose Uric Acid 1.6 L Calcium 8.3 L Ferritin 1582.0 H AST 34 H ALT 41 H Lactate Dehydrogenase 394 H C-Reactive Protein 4.10 H Total Protein 5.3 L Albumin 2.5 L Albumin/Globulin Ratio 0.9 L Procalcitonin 12/07/20 12/07/20 12/07/20 05:24 05:23 05:23 WBC 4.0 L RBC 3.97 L Hgb 11.3 L Hct 32.4 L Neut % (Auto) Lymph % (Auto) Lymph # (Auto) Lymphocytes % 10 L PT INR D-Dimer Sodium Potassium Chloride Creatinine Glucose Uric Acid Calcium Ferritin 1747.0 H AST ALT Lactate Dehydrogenase C-Reactive Protein 9.00 H Total Protein Albumin Albumin/Globulin Ratio Procalcitonin 12/07/20 12/07/20 12/06/20 05:23 05:23 13:42 WBC RBC Hgb Hct Neut % (Auto) Lymph % (Auto) Lymph # (Auto) Lymphocytes % PT 16.5 H INR 1.3 H D-Dimer 1.02 H 1.53 H Sodium Potassium Chloride 109 H Creatinine Glucose 120 H Uric Acid 1.9 L Calcium 7.8 L Ferritin AST 40 H ALT 40 H Lactate Dehydrogenase 378 H C-Reactive Protein Total Protein 5.2 L Albumin 2.6 L Albumin/Globulin Ratio Procalcitonin 12/06/20 12/06/20 12/06/20 10:15 10:15 10:15 WBC RBC Hgb Hct Neut % (Auto) Lymph % (Auto) Lymph # (Auto) Lymphocytes % PT INR D-Dimer Sodium 132 L Potassium 2.8 L* Chloride 94 L Creatinine 0.4 L Glucose Uric Acid Calcium 8.3 L Ferritin 1998.0 H AST 54 H ALT 42 H Lactate Dehydrogenase C-Reactive Protein 13.30 H Total Protein Albumin 3.1 L Albumin/Globulin Ratio Procalcitonin 0.19 H 12/06/20 10:15 WBC RBC Hgb Hct 35.9 L Neut % (Auto) Lymph % (Auto) Lymph # (Auto) Lymphocytes % 9 L PT INR D-Dimer Sodium Potassium Chloride Creatinine Glucose Uric Acid Calcium Ferritin AST ALT Lactate Dehydrogenase C-Reactive Protein Total Protein Albumin Albumin/Globulin Ratio Procalcitonin Meds: Medications Acetaminophen (Acetaminophen 325 Mg Tablet) 650 mg PO Q6HP PRN PRN Reason: PAIN/FEVER > 101 Albuterol/Ipratropium (Ipratropium/Albuterol 3 Ml Ampul.Neb) 3 ml NEB Q4HP PRN PRN Reason: Shortness Of Breath Atorvastatin Calcium (Atorvastatin 10 Mg Tablet) 10 mg PO [facility] Last Admin: 12/08/20 20:10 Dose: 10 mg Documented by: Dexamethasone (Dexamethasone 4 Mg Tablet) 6 mg PO DAILY [facility] Last Admin: 12/08/20 09:55 Dose: 6 mg Documented by: Enoxaparin Sodium (Enoxaparin 40 Mg/0.4 Ml Syringe) 40 mg SQ BID [facility] Last Admin: 12/08/20 20:11 Dose: 40 mg Documented by: REMDESIVIR 100 mg/ Sodium (Chloride) 250 mls @ 500 mls/hr IV DAILY@1100 [facility] Stop: 12/10/20 11:29 Last Infusion: 12/08/20 13:26 Dose: Infused Documented by: Potassium Chloride 40 meq/ (Dextrose) 520 mls @ 130 mls/hr IV UD PRN PRN Reason: Potassium < 3 Magnesium Sulfate (Magnesium Sulfate) 2 gm in 50 mls @ 50 mls/hr IV UD PRN PRN Reason: Magnesium </= 1.6 Ceftriaxone Sodium 2 gm/ (Dextrose) 50 mls @ 100 mls/hr IV Q24H [facility]; Protocol Last Infusion: 12/08/20 10:26 Dose: Infused Documented by: Latanoprost (Latanoprost Ophth Drops 2.5ml Bottle) 1 gtt OU [facility] Last Admin: 12/08/20 20:11 Dose: 1 gtt Documented by: Lorazepam (Lorazepam 2 Mg/Ml Vial) 0.5 mg IV Q8HP PRN PRN Reason: ANXIETY/SEDATION Last Admin: 12/06/20 20:50 Dose: 0.5 mg Documented by: Melatonin (Melatonin 3 Mg Tablet) 6 mg PO [facility] Last Admin: 12/08/20 20:10 Dose: 6 mg Documented by: Omeprazole (Omeprazole 20 Mg Capsule) 20 mg PO ACB [facility] Last Admin: 12/08/20 07:28 Dose: 20 mg Documented by: Ondansetron HCl (Ondansetron 4 Mg/2 Ml Vial) 4 mg IV Q4HP PRN PRN Reason: Nausea And Vomiting Polyethylene Glycol (Polyethylene Glycol 3350 17 Gm Packet) 17 gm PO DAILYP PRN PRN Reason: Constipation Potassium Chloride (Potassium Chloride 20 Meq Tablet) 40 meq PO UD PRN PRN Reason: Potssium is 3-3.5 Potassium Chloride (Potassium Chloride 20 Meq Tablet) 40 meq PO UD PRN PRN Reason: Potassium < 3 Prochlorperazine (Prochlorperazine 10 Mg/2 Ml Vial) 10 mg IV Q6HP PRN PRN Reason: Nausea And Vomiting Senna (Sennosides 1 Tablet) 2 tab PO DAILYP PRN PRN Reason: Constipation Sodium Chloride (0.9 % Sodium Chloride 10 Ml Syringe) 10 ml IV Q8 [facility] Last Admin: 12/09/20 05:22 Dose: 10 ml Documented by: Vitamin B Complex (Vitamin B Complex 1 Capsule) 1 cap PO DAILY [facility] Last Admin: 12/08/20 09:56 Dose: 1 cap Documented by: Zinc Sulfate (Zinc Sulfate 50 Mg Capsule) 50 mg PO DAILY [facility] Last Admin: 12/08/20 09:56 Dose: 50 mg Documented by: A/P Narrative A/P Narrative: A: *Covid pneumonia: -inflammatory markers improving *Acute hypoxic respiratory failure: 2/2 above -1L NC, just placed on room air *Bacteremia (Moraxella 1/ bottles): repeat BC neg *Hyponatremia/hypokalemia: improved *Generalized weakness/malaise: 2/2 above P: -Remdesiver/Dexa -prone positioning -abx for bacteremia -wean O2, prn nebs -pt/ot -ppx: Lovenox/home ppi full code Time Spent With Patient Time: Total time spent is greater than 50% in coordination of care (as documented) at patient's floor/unit and/or counseling patient: QUALITY VTE Deep Vein Thrombosis/Pulmonary Embolism Present on Admission: No
[2020-12-09] MEDS: OMEPRAZOLE 20 MG CAPSULE PO SCH (08:30)
[2020-12-09] MEDS: cefTRIAXone 2 GM in DEXTROSE 5% IN WATER 50 ML IV SCH (08:30)
[2020-12-09] MEDS: DEXAMETHASONE 4 MG TABLET PO SCH (08:30)
[2020-12-09] MEDS: ENOXAPARIN 40 MG/0.4 ML SYRINGE SQ SCH ×2 (08:30→20:57)
[2020-12-09] MEDS: ZINC SULFATE 50 MG CAPSULE PO SCH (08:31)
[2020-12-09] MEDS: VITAMIN B COMPLEX 1 CAPSULE PO SCH (08:31)
[2020-12-09] MEDS: REMDESIVIR 100 MG in 0.9 % SODIUM CHLORIDE 250 ML IV SCH (10:50)
[2020-12-09 12:15] LABS: ALT/SGPT 72 U/L (<40); AST/SGOT 83 U/L (<32); Albumin 2.8 gm/dL (3.2-5.2); Albumin/Globulin Ratio 0.9 (1.0-2.3); Alkaline Phosphatase 77 U/L (39-117); Bilirubin,Direct < 0.2 mg/dL (0-0.3); Bilirubin,Total 0.3 mg/dL (0.1-1.0); Blood Urea Nitrogen 11 mg/dL (8-23); Calcium 8.3 mg/dL (8.6-10.4); Carbon Dioxide 25 mmol/L (22-30); Chloride 103 mmol/L (96-108); Globulin 3.2 gm/dL (2.2-3.7); Glomerular Filtration Rate 92; Glucose 106 mg/dL (70-105); Lactate Dehydrogenase 405 U/L (135-225); Phosphorous 2.8 mg/dL (2.5-4.5); Triglycerides 109 mg/dL (<150); Uric Acid 2.3 mg/dL (2.5-8.0)
[2020-12-09] MEDS: ATORVASTATIN 10 MG TABLET PO SCH (20:57)
[2020-12-09] MEDS: MELATONIN 3 MG TABLET PO SCH (20:57)
[2020-12-09] MEDS: LATANOPROST OPHTH DROPS 2.5ML BOTTLE OU SCH (20:58)
[2020-12-10] MEDS: 0.9 % SODIUM CHLORIDE 10 ML SYRINGE IV SCH (04:58)
[2020-12-10] MEDS: VITAMIN B COMPLEX 1 CAPSULE PO SCH (08:21)
[2020-12-10] MEDS: OMEPRAZOLE 20 MG CAPSULE PO SCH (08:21)
[2020-12-10] MEDS: ZINC SULFATE 50 MG CAPSULE PO SCH (08:21)
[2020-12-10] MEDS: ENOXAPARIN 40 MG/0.4 ML SYRINGE SQ SCH (08:21)
[2020-12-10] MEDS: DEXAMETHASONE 4 MG TABLET PO SCH (08:21)
[2020-12-10] MEDS: cefTRIAXone 2 GM in DEXTROSE 5% IN WATER 50 ML IV SCH (08:22)
[2020-12-10] MEDS: REMDESIVIR 100 MG in 0.9 % SODIUM CHLORIDE 250 ML IV SCH (10:19)
== END 2020-12-10 11:35 | disposition home or self-care (01) | DRG 177 ==
LOC: ED 09:43 → ICU 13:18
PROVIDERS: ADMIT Internal Medicine; ATTEND Internal Medicine